=== PATIENT | male | born 1985 | race African-American/Black ===

== ENCOUNTER 2018-11-27 01:18 | Emergency (ER) | payer SELFPAY ==
[~2018-11-27] VITALS: Ht 180.3 cm; Wt 120.2 kg
[2018-11-27 01:35] VITALS: BP 133/84
--- NOTE | 2018-11-27 01:35 | NUR ---
ED Nurse Note: Patient presents with a tooth ache.
--- NOTE | 2018-11-27 01:56 | Emergency Room Report ---
History of Present Illness General Chief Complaint: Toothache Source: Patient Present Illness HPI Is a 33-year-old male with no significant past medical history other than asthma. He presents with chief complaint of dental pain and facial swelling. Onset for last couple days. Right lower jaw swollen. Tender to palpation in eating. Pain is 8 out of 10. No nausea no vomiting no fever chills. Does not have a dentist. Allergies: Coded Allergies: No Known Allergies (Unverified , 11/27/18) Patient History Past Medical History: see triage record, old chart reviewed, asthma Past Surgical History: none Pertinent Family History: none Social History: Denies: smoking Immunizations: other Reviewed Nursing Documentation: PMH: Agreed; PSxH: Agreed Nursing Documentation-PMH Past Medical History: No History, Except For Hx Asthma: Yes Review of Systems Eye: Denies: eye pain, blurred vision ENT: Denies: ear pain, nose congestion, throat swelling Respiratory: Denies: cough, shortness of breath Cardiovascular: Denies: chest pain, palpitations Gastrointestinal: Denies: abdominal pain, diarrhea, nausea, vomiting Musculoskeletal: Denies: back pain, joint pain Skin: Denies: rash Neurological: Denies: headache, numbness Endocrine: Denies: increased thirst, increased urine Hematologic/Lymphatic: Denies: easy bruising All Other Systems: negative except mentioned in HPI Physical Exam Vital Signs Date Time Temp Pulse Resp B/P (MAP) Pulse Ox O2 Delivery O2 Flow Rate FiO2 11/27/18 01:30 97.7 81 16 133/84 99 Room Air vitals normal Sp02 EP Interpretation: reviewed, normal General Appearance: well appearing, no apparent distress, alert Head: normocephalic, atraumatic Eyes: bilateral eye PERRL, bilateral eye EOMI ENT: hearing grossly normal, normal pharynx, other - pt has abscess over rt lower premolar/molar area. Neck: full range of motion, supple, no meningismus Respiratory: chest non-tender, lungs clear, normal breath sounds Cardiovascular #1: regular rate, rhythm, no murmur Gastrointestinal: normal bowel sounds, non tender, no mass, no organomegaly, no bruit, non-distended Musculoskeletal: back normal, gait/station normal, normal range of motion Psychiatric: mood/affect normal Skin: warm/dry Medical Decision Making Diagnostic Impression: Primary Impression: Dental abscess ER Course She with a dental abscess. I recommend an I&D but patient refused. Put him on antibiotics and have her follow-up with dentist EDE. He claimed that he is on his girlfriend insurance which has dental plan. Last Vital Signs Date Time Temp Pulse Resp B/P (MAP) Pulse Ox O2 Delivery O2 Flow Rate FiO2 11/27/18 01:30 97.7 81 16 133/84 99 Room Air Status: unchanged Disposition: HOME, SELF-CARE Condition: Stable Scripts Ibuprofen* (MOTRIN*) 600 Mg Tablet 600 MG ORAL THREE TIMES A DAY, #30 TAB 0 Refills Prov: Irwin Salazar MD 11/27/18 Hydrocodone/Acetaminophen 5-325* (HYDROCODONE/ACETAMINOPHEN 5-325*) 1 Each Tablet 1 TAB ORAL Q6H PRN for For Pain, #10 TAB 0 Refills Prov: Irwin Salazar MD 11/27/18 Amoxicillin/Potassium Clav 875-125* (AUGMENTIN 875-125 TABLET*) 1 Each Tablet 1 TAB ORAL TWICE A DAY, #14 TAB Prov: Irwin Salazar MD 11/27/18 Additional Instructions: You have a dental abscess that need to be I&D. Since you refused, this may worsen. You need to follow-up with a dentist EDE. Return if symptom worsen. Irwin Salazar MD Nov 27, 2018 01:56
[2018-11-27] MEDS ORDERED: Norco 5mg/325mg tab ORAL ONE (02:00)
[2018-11-27] MEDS ORDERED: Augmentin 875mg Tab ORAL ONE (02:00)
[2018-11-27] MEDS ORDERED: AUGMENTIN 875-1 EAC1 ORAL (02:01)
[2018-11-27] MEDS ORDERED: IBUPROFEN600 MG ORAL (02:01)
[2018-11-27] MEDS ORDERED: HYDROCODON-ACE1 EA15 ORAL (02:01)
[2018-11-27 02:22] VITALS: BP 133/84
== END 2018-11-27 02:20 | disposition home or self-care (01) ==
LOC: EMR 01:46
DX: K04.7 Periapical abscess without sinus (principal)
CPT/HCPCS: 99283